=== PATIENT | female | born 2005 | race Two or more races ===

== ENCOUNTER 2024-10-27 12:50 | Observation (INO) | payer SELFPAY ==
[2024-10-27 13:03] VITALS: BP 102/67; PULSE 90; RESP 100; RESP 18; TEMP 37.1; BMI 30.4
[2024-10-27 13:04] VITALS: BP 102/67; PULSE 90
== END 2024-10-27 13:40 | disposition home or self-care (01) ==
PROVIDERS: Admitting Provider Obstetrics & Gynecology; Visit Provider Obstetrics & Gynecology
DX: O26.892 Other specified pregnancy related conditions, second trimester (principal); Z3A.27 27 weeks gestation of pregnancy; R25.2 Cramp and spasm
CPT/HCPCS: 59025; 59899

== ENCOUNTER 2024-11-26 13:53 | Outpatient (AMB) | payer MEDICAID, SELFPAY ==
--- NOTE | 2024-11-26 14:19 | AMB.OBINITIA ---
Vital Signs 11/26/24 14:21 Height 1.57 m Height Method Stated Weight 76.912 kg Weight Measurement Method Standing Scale BMI 31.1 BP 109/71 Blood Pressure Source Automatic Cuff Blood Pressure Location Right Upper Arm Position Sitting Respiration 17 Pulse 79 Pulse Source Monitor Temp 97.6 F Temp Source Temporal Artery Scan Pulse Oximetry (%) 98 Oxygen Delivery Method Room Air Allergies/Home Meds Allergies & Medications Allergies No Known Allergies Allergy (Verified 11/26/24 14:21) Medication Reconciliation Unobtainable 11/26/24 [History Confirmed 11/26/24] Intake Visit Data Collection New Patient or Established: New Patient (never been to [facility]) Reason for Visit:: OBI Seen by Clinical Staff ONLY (RN/MA): No Property Custodian Required: No Do You Feel Safe at Home: Yes Authorities Contacted: N/A PCP or OBGYN visit in last 3 months: Yes Date of Last PCP or OBGYN visit: 10/27/24 Hx Now: Yes Are you currently on any form of Control: No Pain Present Currently: No Pain Scale Used: Vergara-Tejada/Numerical Pain scale:: 0 Smoking Status Smoking Status: Never smoker Questionnaires Covid-19 Vaccine Questionnaire Has patient been vacinated for Covid-19 Have you been vacinated for Covid-19: No PHQ-9 PHQ-2 Over the last 2 weeks, how often have you been bothered by any of the following problems? 1. Little interest or pleasure in doing things: not at all 2. Feeling down, depressed, or hopeless: not at all Total score: 0 PHQ-9 3. Trouble falling or staying asleep, or sleeping too much: Not at all 4. Feeling tired or having little energy: Not at all 5. Poor appetite or overeating: Not at all 6. Feeling bad about yourself - or that you are a failure or have let yourself or your family down: Not at all 7. Trouble concentrating on things, such as reading the newspaper or watching television: Not at all 8. Moving or speaking so slowly that other people could have noticed? - Or the opposite - being so fidgety or restless that you have been moving around a lot more than usual: not at all 9. Thoughts that you would be better off or of hurting yourself in some way: Not at all Total score: 0 If you checked off any problems, how difficult have these problems made it for you to do your work, take care of things at home, or get along with other people?: not difficult at all Source: Developed by Drs. Chucho Bustamante, Brianne Rucker, Roberto Brar and colleagues, with an educational soledad from [employer]. Depression screen completed yes Social History Living Situation History Marital Status: Lives With: Family Housing: House Tobacco History Smoking Status: Never smoker Second Hand Smoke Exposure: No Alcohol History Alcohol Intake: Never Domestic Abuse History Do You Feel Safe at Home: Yes OB Initial Visit OB Flowsheet OB Flowsheet Initial Weight: Not Recorded Date <del>?</del> EGA Weight BP Alb Glu CTX Pres Fundal ht FHR Mov Dilation Station Effacement Hx Notes Visit Note 11/26/24 <del>?</del> 32w 1d 76.912 kg 109/71 absent cephalic 31 145 active 19-year-old 2 para [address] Ornelas with records. Reports good movement. Denies contractions. Denies bleeding. Denies leaking fluid. No interval complaints. Reports good movement OB sono for growth today. Discussed labor precautions and kick count. Increase fluids. Continue vitamins. Discussed danger signs symptoms ER precautions. Return 2 weeks OB check Menstrual History Menstrual reliability: definite Flow: normal Menstrual regularity: regular Monthly: Yes Age at menarche: 12 On control pills at conception: No OB History : 2 Para: 1 Infection History & Risk Evaluation History of STDs: none HIV risk evaluation: low risk Hepatitis B risk evaluation: low risk Patient or partner has history of Genital Herpes: No Varicella/chicken pox status: unknown Genetic Screening & History Genetic Screening/Teratology Counseling - Includes patient, baby's father, or anyone in either family with: 1. Patient's age 35 years or older as of estimated date of delivery: No 2. Thalassemia (Japanese, Salvadorean, Mediterranean, or Background); MCV less than 80: No 3. Neural Tube Defect (Meningomyelocele, Spina Bifida, or Anencephaly): No 4. Congenital Heart Defect: No 5. Down Syndrome: No 6. Lucio-Sachs (Ashkenazi Jehovah'S Witness, Cajun, Albanian Algerian): No 7. Rosaenne Disease (Ashkenazi Jehovah'S Witness): No 8. Familial Dysautonomia (Ashkenazi Jehovah'S Witness): No 9. Sickle Cell Disease or Trait (): No 10. Hemophilia or other blood disorders: No 11. Muscular Dystrophy: No 12. Cystic Fibrosis: No 13. Scott's Chorea: No 14. Mental Retardation/Autism: No 15. Other inherited genetic or chromosomal disorder: No 16. Maternal Metabolic Disorder (EG,TYPE 1 Diabetes, PKU): No 17. Patient or baby's father had a child with defects not listed above: No 18. Recurrent loss or a stillbirth: No 19. Medications (including supplements, vitamins, herbs or otc drugs)/illicit/recreational drugs/alcohol since last menstrual period: No 20. Any other: No Infection History 1. Live with someone with TB or exposed to TB: No 2. Rash or viral illness since last menstrual period: No 3. Hepatitis B,C: No Other (see comments) Source: [employer] Office Procedures OB Clinic LOC & Office Proc's Nursing/Assessment Patient Status: Established Patient OB Clinic Nursing Assessment: Medication Reconciliation, Update PMH in EMR and Vital Signs OB Clinic Coordination of Care: Complex Care and Chronic Disease 1-5, Consent,records obtained, informed consent, Education Simp Pt/Fam, Results/Orders obtained and Staff clarify orders Special Needs: Heart tones Established Patient Charge Established Patient Point Assignment: 120 Established Patient Point Charge: EP Level 4 (120-155) Assessment & Plan Diagnosis / Problem List (1) Encounter for supervision of high risk in third trimester, antepartum: Status: Acute Plan Sono for growth at [facility]. Discussed labor precautions. kick count. Increase fluids. Continue prenatals. Return in 2 weeks OB Additional Plan Follow Up: 2 Weeks (obc)
[2024-11-26 14:21] VITALS: BP 109/71; PULSE 79; RESP 17; TEMP 36.4; O2SAT 98; BMI 31.1
== END 2024-11-26 14:46 | disposition home or self-care (01) ==
LOC: HODSOBC 13:53
PROVIDERS: Supervising Provider Advanced Practice Midwife; Visit Provider Advanced Practice Midwife
DX: O09.93 Supervision of high risk pregnancy, unspecified, third trimester (principal); Z3A.32 32 weeks gestation of pregnancy
CPT/HCPCS: 99214; G0463

== ENCOUNTER 2024-12-22 10:50 | Observation (INO) | payer MEDICAID, SELFPAY ==
[2024-12-22 11:02] VITALS: BP 113/72; BP 119/72; PULSE 77; RESP 17; TEMP 37.1; BMI 34.0
--- NOTE | 2024-12-22 11:12 | XR_ITS ---
Examination: Complete OB ultrasound greater than 14 weeks Date and time of exam: December 22, 2024, 1121 hrs. Indications: Vaginal bleeding beginning this morning Findings: Viable intrauterine single fetus with single amniotic sac presentation Vertex Cardiac motion 136 BPM. Placenta fundal grade 3. Amniotic fluid index 14.8 cm. Ovaries obscured by bowel gas.. Composite estimated gestational age based on BPD, head circumference, abdominal circumference, femur length is 36 weeks 0 days Estimated weight 2714 g. Survey of intracranial anatomy, spinal anatomy, abdominal anatomy, four-chamber heart performed with no abnormalities identified. Impression: Viable intrauterine gestation vertex presentation..
[2024-12-22 12:07] LABS: Amorphous Crystals,Urine Present (Absent); Bacteria,Urine Rare; Bilirubin,Urine Negative (Negative); Blood,Urine 2+ (Negative); Clarity,Urine Turbid (Clear/Hazy); Collection Type, Urine Clean Catch; Color,Urine Lt-Yellow (Lt Yel-Yel); Glucose, Urine Negative (Negative); Ketones,Urine Negative (Negative); Leukocyte Esterase,Urine Positive (Negative); Nitrite,Urine Negative (Negative); PH,Urine 7.0 (5.0-7.0); Protein,Urine Negative (Neg - Trace); RBC,Urine 5 /hpf (0-3); Specific Gravity,Urine 1.011 (1.001-1.035); Squamous Epithelial Cell,Urine 21 /hpf (0-5); Urobilinogen,Urine Negative mg/dL (0.0-1.0); WBC,Urine 27 /hpf (0-5)
== END 2024-12-22 13:50 | disposition home or self-care (01) ==
PROVIDERS: Admitting Provider Obstetrics & Gynecology; PCP Family Medicine; Visit Provider Obstetrics & Gynecology
DX: O46.93 Antepartum hemorrhage, unspecified, third trimester (principal); Z3A.36 36 weeks gestation of pregnancy
CPT/HCPCS: 59025; 59899; 76805; 81001; 87086; G0378

== ENCOUNTER 2024-12-30 13:00 | Outpatient (AMB) | payer MEDICAID, SELFPAY ==
--- NOTE | 2024-12-30 13:14 | AMB.OBVISIT ---
Vital Signs 12/30/24 13:15 Height 1.55 m Height Method Stated Weight 80.853 kg Weight Measurement Method Standing Scale BMI 33.6 BP 123/78 Blood Pressure Source Automatic Cuff Blood Pressure Location Left Upper Arm Position Sitting Respiration 18 Pulse 86 Pulse Source Monitor Temp 97.8 F Temp Source Oral Pulse Oximetry (%) 97 Oxygen Delivery Method Room Air Allergies/Home Meds Allergies & Medications Allergies No Known Allergies Allergy (Verified 12/30/24 13:16) Medication Reconciliation [id number] 40 mg-1 mg chewable tablet 1 tab PO QDAY 12/22/24 [History Confirmed 12/30/24] Intake Visit Data Collection New Patient or Established: Established Patient (seen at [facility] [place] within 3 years) Reason for Visit:: CARE Seen by Clinical Staff ONLY (RN/MA): No Java Jsf Developer Required: No Do You Feel Safe at Home: Yes Authorities Contacted: N/A PCP or OBGYN visit in last 3 months: Yes Hx Now: Yes Are you currently on any form of Control: No Pain Present Currently: Yes Pain Location: Abdomen Pain Scale Used: Vergara-Tejada/Numerical Pain scale:: 3 Smoking Status Smoking Status: Never smoker Questionnaires Covid-19 Vaccine Questionnaire Has patient been vacinated for Covid-19 Have you been vacinated for Covid-19: Yes PHQ-9 PHQ-2 Over the last 2 weeks, how often have you been bothered by any of the following problems? 1. Little interest or pleasure in doing things: not at all 2. Feeling down, depressed, or hopeless: not at all Total score: 0 PHQ-9 3. Trouble falling or staying asleep, or sleeping too much: Not at all 4. Feeling tired or having little energy: Not at all 5. Poor appetite or overeating: Not at all 6. Feeling bad about yourself - or that you are a failure or have let yourself or your family down: Not at all 7. Trouble concentrating on things, such as reading the newspaper or watching television: Not at all 8. Moving or speaking so slowly that other people could have noticed? - Or the opposite - being so fidgety or restless that you have been moving around a lot more than usual: not at all 9. Thoughts that you would be better off or of hurting yourself in some way: Not at all Total score: 0 Source: Developed by Drs. Chucho Bustamante, Brianne Rucker, Roberto Brar and colleagues, with an educational soledad from [employer]. Depression screen completed yes Social History Living Situation History Lives With: Family Housing: House Tobacco History Smoking Status: Never smoker Second Hand Smoke Exposure: No Alcohol History Alcohol Intake: Never Domestic Abuse History Do You Feel Safe at Home: Yes Care OB Visit Log OB Flowsheet Initial Weight: Not Recorded Date <del>?</del> EGA Weight BP Alb Glu CTX Pres Fundal ht FHR Mov Dilation Station Effacement Hx Notes Visit Note 11/26/24 <del>?</del> 32w 1d 76.912 kg 109/71 absent cephalic 31 145 active 19-year-old 2 para [address] Ornelas with records. Reports good movement. Denies contractions. Denies bleeding. Denies leaking fluid. No interval complaints. Reports good movement OB sono for growth today. Discussed labor precautions and kick count. Increase fluids. Continue vitamins. Discussed danger signs symptoms ER precautions. Return 2 weeks OB check 12/30/24 <del>?</del> 37w 0d 80.853 kg 123/78 absent cephalic 36 145 active Reports good movement. Denies leaking, bleeding, contractions. No OB discomfort GBS today. Discussed labor precautions. Discussed kick count twice a day. Patient was given requisition to make appointment for ultrasound at [facility]. Return in a week OB check SKYE Calculator Estimated Delivery Date Method Current WG Current Estimate 01/20/25 Ultrasound #1 37w 0d Other Estimates 01/26/25 LMP (Uncertain) 36w 1d 01/16/25 Ultrasound #2 37w 4d 01/20/25 Manual 37w 0d Final SKYE: 01/20/25. efw: 58% Notes Visit Date: 11/26/24 Last Updated by: Pauline Price, TIMUR 19 yo . poor dates. LMP 04/21/24; EDC: 02/05/25. 1st sono: 4/1/25; 13w1. EDC: 01/20/25. OB panel: )O+,abs-, rpr;;nr, rub NI, HIV-,HBSAG-, HC-, A1: 5.3, 1 hr gtt: 120, Gc/CT-, 43//262, AFP/NIPT/carrier screen- sono 09/23: 23w4 on . EDC: % Office Procedures OB Clinic LOC & Office Proc's Nursing/Assessment Patient Status: Established Patient OB Clinic Nursing Assessment: Medication Reconciliation, Update PMH in EMR and Vital Signs OB Clinic Coordination of Care: Complex Care and Chronic Disease 1-5, Consent,records obtained, informed consent, Education Simp Pt/Fam, 1 Ins Authorization, Lab and Imaging orders, Results/Orders obtained and Staff clarify orders Special Needs: Heart tones Miscellaneous Interventions: Culture Specimen Collection Established Patient Charge Established Patient Point Assignment: 165 Established Patient Point Charge: EP Level 5 (160-above) Assessment & Plan Diagnosis / Problem List (1) Encounter for supervision of high risk in third trimester, antepartum: Status: Acute Plan GBS today. Discussed labor precautions and kick count. Discussed kick count twice a day. Discussed ER precautions. Return in a week for OB check. And patient will schedule follow-up growth sono with [facility] imaging. Additional Plan Follow Up: 1 Week (obc)
[2024-12-30 13:15] VITALS: BP 123/78; PULSE 86; RESP 18; TEMP 36.6; O2SAT 97; BMI 33.6
== END 2024-12-30 13:28 | disposition home or self-care (01) ==
LOC: HODSOBC 13:00
PROVIDERS: PCP Family Medicine; Referring Provider Family Medicine; Supervising Provider Advanced Practice Midwife; Visit Provider Advanced Practice Midwife
DX: O09.93 Supervision of high risk pregnancy, unspecified, third trimester (principal); Z3A.37 37 weeks gestation of pregnancy; Z36.85 Encounter for antenatal screening for Streptococcus B
CPT/HCPCS: 99215; G0463

== ENCOUNTER 2025-01-01 19:05 | Inpatient (IN) | payer MEDICAID, SELFPAY ==
[2025-01-01] VITALS (23 sets, daily range): BP systolic 120–131; BP diastolic 68–86; PULSE 68–116; RESP 19–99; TEMP 37.4–37.5; O2SAT 97–99; BMI 30.4; BMI 32.4
[2025-01-01 19:48] LABS: ROM Kit Exp Date# 01/18/2028; ROM Kit Lot # 58104371; ROM Swab Mixed By: TA; Swb Mxed in Solvent 1 min? Yes
[2025-01-01 19:49] LABS: Rupture of Fetal Membranes Positive (Negative)
--- NOTE | 2025-01-01 21:05 | XR_ITS ---
Examination: Complete OB ultrasound greater than 14 weeks Date and time of exam: January 01, 2025 2119 hrs. Indications: Labor evaluation, unknown presentation Findings: Viable intrauterine single fetus with single amniotic sac presentation cephalic Cardiac motion 144 BPM Placenta posterior grade 3. Umbilical cord insertion 3 vessel seen. Amniotic fluid index 6.7 cm spine maternal left Cervix 3.6 cm Ovaries obscured by bowel gas. Composite estimated gestational age based on BPD, head circumference, abdominal circumference, femur length is 36 weeks 6 days Estimated weight 2985 g. Survey of intracranial anatomy, spinal anatomy, abdominal anatomy, four-chamber heart performed with no abnormalities identified. Impression: Viable intrauterine gestation cephalic presentation.
[2025-01-01 21:59] LABS: Basophils # (Auto) 0.0 Thou/mm3 (0.0-0.2); Basophils % (Auto) 0 % (0-2.5); Eosinophils # (Auto) 0.0 Thou/mm3 (0.0-0.5); Eosinophils % (Auto) 0 % (0-10); Hematocrit 32.9 % (36.0-46.0); Hemoglobin 10.2 g/dL (12.0-16.0); Immature Granulocytes Auto 0.13 Thou/mm3 (0.00-0.00); Lymphocytes # (Auto) 3.3 Thou/mm3 (1.0-4.8); Lymphocytes % (Auto) 36 % (10-50); Mean Corpuscular HGB Conc 31.0 g/dl (31.0-37.0); Mean Corpuscular Hemoglobin 23.8 pg (25.0-35.0); Mean Corpuscular Volume 77 fL (80-100); Monocytes # (Auto) 0.5 Thou/mm3 (0.0-0.8); Monocytes % (Auto) 5 % (0-12); Neutrophils # (Auto) 5.3 Thou/mm3 (1.8-7.7); Neutrophils % (Auto) 57 % (37-80); Nucleated Red Blood Cell # 0.03 Thou/mm3 (0.00-0.00); Nucleated Red Blood Cell % 0 /100 WBC (0); Platelet Count 185 Thou/mm3 (140-440); RDW Standard Deviation 41.8 fL (36.4-46.3); Red Blood Count 4.28 Miln/mm3 (4.00-5.20); White Blood Count 9.3 Thou/mm3 (4.5-11.0)
[2025-01-01 22:38] LABS: Syphilis Nonreactive (Nonreactive)
[2025-01-01] MEDS: RINGERS LACTATED 1000 ML 1,000 ML 100 ML IV (23:02)
[2025-01-01] MEDS: Ampicillin Inj 2,000 MG in SODIUM CHLORIDE 0.9% (POP) 100 ML 200 MG IV (23:02)
[2025-01-01] MEDS: OXYTOCIN in NS 30 units 30 UNIT/500 ML BAG IV (23:03)
[2025-01-02] VITALS (34 sets, daily range): BP systolic 102–188; BP diastolic 59–104; PULSE 60–99; RESP 16–18; TEMP 36.6–37; O2SAT 96–98
[2025-01-02] MEDS: Ampicillin Inj 1,000 MG in SODIUM CHLORIDE 0.9% (Popper) 50 ML 50 MG IV ×2 (02:55→07:30)
[2025-01-02] MEDS: MINERAL OIL 30 ML UDC TOP (08:20)
[2025-01-02] MEDS: LIDOCAINE HCL 1% 20 ML VIAL INFL (08:20)
[2025-01-02] MEDS: OXYTOCIN INJ 10 UNIT/ML VIAL IM (08:28)
[2025-01-02] MEDS: OXYTOCIN in NS 20 units 20 UNIT/1,000 ML BAG 125 UNIT IV (08:28)
[2025-01-02] MEDS: METHYLERGONOVINE INJ 0.2 MG/ML VIAL IM (08:37)
[2025-01-02] MEDS: IBUPROFEN TAB 400 MG TABLET 800 MG PO ×2 (09:04→20:36)
--- NOTE | 2025-01-02 09:06 | PD.LDHP ---
Documentation for date of: 01/02/25 OB Labor/Induct. HPI History of Present Illness Chief complaint: srom : 2 Para: 1 Term pregnancies: 1 pregnancies: 0 Living children: 1 History of Abortions: Spontaneous and Elective: 0 History of Vaginal deliveries: 1 History of sections: No History of : No Date of last menstrual period: 04/21/24 SKYE: 01/20/25 Gestational Age (weeks): 37 Gestational Age (days): 2 Gestational age based on last menstrual period: 36 History of present illness: 19 -year-old 2 para 1 complains of leaking fluid. Since 1200 on January 01, 2025. LMP 04/21/24. EDC; 02/05/25. first visit at [facility] OB was at 13 week. No PMH,no social habit, no surgery. irreg uc. leaking clear fluid. O+,abs-, RPR::NR, rub imm, hbsag-, hiv-, GC/CT-. 1 hr gtt normal. NIPT/carrier screen-, GBS- History of Present Dating criteria: LMP confirmed by 1st trimester US Adequate Care: Yes Ultrasounds: normal 1st trimester US and normal mid trimester US Obstetrical complications: none Medical complications: none Labs Labs: Positive: RPR, Negative: Hepatitis B, Rubella Titre, HIV, Chlamydia and Gonorrhea and Unknown: Herpes Type 1, Herpes Type 2, Group Beta Strep and Covid-19 Review of Systems Review of Systems Systems Reviewed: All systems reviewed, normal except as documented Past Medical History Surgical History SURGICAL: Negative Section Meds Home Medications and Allergies Home Medications ?Medication ?Instructions ?Recorded ?Confirmed ?Type [id number] 40 mg-1 1 tab PO QDAY 12/22/24 01/01/25 History mg chewable tablet Allergies Allergy/AdvReac Type Severity Reaction Status Date / Time No Known Allergies Allergy Verified 01/01/25 21:44 OB Exam Physical Exam Vital signs: Temp Pulse Resp BP Pulse Ox 97.9 F 94 19 135/87 H 98 01/02/25 07:36 01/02/25 09:05 01/01/25 19:17 01/02/25 09:05 01/01/25 20:37 Narrative: normal heart rate. lungs clear. no wheezes. gravid abdomen. gynecoid pelvis. + amniosure. irregular UC. sve: 80/3/-3. vertex. EFW 6 lb. FHR category 1, accel and moderate variability. Detailed Labor and Delivery Exam Dilation (cm): 3 Effacement (%): 80 Cervix position: mid station: -3 Consistency: soft Presentation: Vertex Membranes: ruptured Amniotic fluid: clear monitor accelerations: 15x15 monitor decelerations: None residential variability: Moderate (11-25) Contraction frequency (min): irreg Contraction duration (sec): 30 Tachysystole: No Contraction intensity: Moderate OB Results Labs 01/01/25 21:45 Labs: Short CBC 01/01/25 Range/Units 21:45 WBC 9.3 (4.5-11.0) Thou/mm3 Hgb 10.2 L (12.0-16.0) g/dL Hct 32.9 L (36.0-46.0) % Plt Count 185 (140-440) Thou/mm3 OB Assessment & Plan Assessment and Plan (1) Normal labor and delivery: Status: Acute Additional Plan Induction method: per pitocin protocol Plan: anticipate NVD, GBS prophylaxis tx and consult MD iyer
[2025-01-02] MEDS: TRANEXAMIC ACID 1,000 MG IVPB 1,000 MG/100 ML BAG 200 MG IV ×2 (09:14→09:59)
--- NOTE | 2025-01-02 09:16 | OBDSUM_ITS ---
Data ([place]) Data Hx Section: No : 2 Term: 1 : 0 Livin Abortions: Spontaneous & Theraputic: 0 Delivery Data ([place]) Labor Data Initiation of labor: Spontaneous Induction/Augmentation Agent: Pitocin ROM date: 01/01/25 ROM time: 12:00 Amniotic membrane rupture type: Spontaneous Amniotic fluid description: Clear Delivery Data EDC: 01/20/25 EDC calculated by:: LMP/early US confirmation Date of arrival to unit: 01/01/25 Time of arrival to unit: 20:28 Onset of labor date: 01/01/25 Onset of labor time: 12:00 Complete dilation date: 01/02/25 Complete dilation time: 08:00 [place] delivery date: 01/02/25 [place] delivery time: 08:26 Gestational age (weeks): 37 Gestational age (days): 2 Placenta delivery date: 01/02/25 Placenta delivery time: 08:28 Stage 1 total time: Labor - Stage 1 Duration 20 hours and 0 minutes Delivered by: Pauline Price Delivery nurse: ilana Reyes nurse: indio Travel Assistant at delivery: Yes Support person(s) at delivery: STARR Other staff at delivery: CORRIE Wiggins LVN student Delivery Method Delivery method: Normal Vaginal Delivery Presentation: Vertex position: OA Anesthesia Type Anesthesia Type: Local Delivery Room Medications Delivery room medications: Lidocaine (local), Methergine 0.2 mg IM, Pitocin 10 u IM, Pitocin 20 u IV and Cytotec 800 AL Placenta Placenta delivery description: Spontaneous (intact , placenta inspected) Cord blood sent to lab: Yes cord blood collection: Cord Blood Type Episiotomy Episiotomy description: Midline Perineal repair Sutures used for repair: 3.0 Vicryl EBL Estimated blood loss (ml): 500 Umbilical Cord cord description: 3 Vessels [place] Data ([place]) [place] Data order: 1 [place]'s gender: Male Identification band number: [id number] weight (gms): 2690 kg Weight (pounds): 5930 lbs and 7.0 ozs 1 minute: 9 5 minutes: 9
[2025-01-02] MEDS: RINGERS LACTATED 1000 ML 1,000 ML 100 ML IV (09:19)
[2025-01-02 17:12] LABS: Basophils # (Auto) 0.0 Thou/mm3 (0.0-0.2); Basophils % (Auto) 0 % (0-2.5); Eosinophils # (Auto) 0.0 Thou/mm3 (0.0-0.5); Eosinophils % (Auto) 0 % (0-10); Hematocrit 31.7 % (36.0-46.0); Hemoglobin 9.9 g/dL (12.0-16.0); Immature Granulocytes Auto 0.15 Thou/mm3 (0.00-0.00); Lymphocytes # (Auto) 2.4 Thou/mm3 (1.0-4.8); Lymphocytes % (Auto) 18 % (10-50); Mean Corpuscular HGB Conc 31.2 g/dl (31.0-37.0); Mean Corpuscular Hemoglobin 24.0 pg (25.0-35.0); Mean Corpuscular Volume 77 fL (80-100); Monocytes # (Auto) 0.7 Thou/mm3 (0.0-0.8); Monocytes % (Auto) 5 % (0-12); Neutrophils # (Auto) 10.2 Thou/mm3 (1.8-7.7); Neutrophils % (Auto) 76 % (37-80); Nucleated Red Blood Cell # 0.03 Thou/mm3 (0.00-0.00); Nucleated Red Blood Cell % 0 /100 WBC (0); Platelet Count 171 Thou/mm3 (140-440); RDW Standard Deviation 41.4 fL (36.4-46.3); Red Blood Count 4.13 Miln/mm3 (4.00-5.20); White Blood Count 13.4 Thou/mm3 (4.5-11.0)
[2025-01-02] MEDS: DOCUSATE SOD 100 MG CAPSULE PO (20:36)
[2025-01-03 03:42] VITALS: BP 108/70; PULSE 70; RESP 16; TEMP 36.6; O2SAT 98
[2025-01-03] MEDS: DOCUSATE SOD 100 MG CAPSULE PO (08:18)
[2025-01-03] MEDS: IBUPROFEN TAB 400 MG TABLET 800 MG PO (08:18)
[2025-01-03 08:30] VITALS: BP 121/71; PULSE 75; RESP 18; TEMP 36.6
--- NOTE | 2025-01-03 12:26 | PD.LDPPPRG ---
Subjective Subjective Interval history: The patient is a 19-year-old -0-0-2 status post vaginal delivery 01/02/2025 by Pauline. She had a small episiotomy at delivery. She is Kiswahili-speaking only and the entire interview and exam is conducted through the nurse. This morning, she is resting comfortably in bed. She denies heavy bleeding. Her pain is under good control. She is voiding and tolerating a general diet. She would like to be discharged home. She is breast and bottlefeeding Exam Vital Signs Temp Pulse Resp BP Pulse Ox O2 Del Method 97.8 F 75 18 121/71 98 Room Air 01/03/25 08:30 01/03/25 08:30 01/03/25 08:30 01/03/25 08:30 01/03/25 03:42 01/03/25 08:30 Narrative Exam Fundus firm about 4 cm below her umbilicus. Extremities show no significant edema or erythema. Objective Labs 01/02/25 17:03 Labs: Laboratory Results - last 24 hr 01/02/25 17:03 WBC 13.4 H D RBC 4.13 Hgb 9.9 L Hct 31.7 L MCV 77 L MCH 24.0 L MCHC 31.2 RDW Std Deviation 41.4 Plt Count 171 Neut % (Auto) 76 Lymph % (Auto) 18 [place] % (Auto) 5 Eos % (Auto) 0 Baso % (Auto) 0 Neut # (Auto) 10.2 H Lymph # (Auto) 2.4 [place] # (Auto) 0.7 Eos # (Auto) 0.0 Baso # (Auto) 0.0 Immature Gran # (Auto) 0.15 H Absolute Nucleated RBC 0.03 H Immature Gran % 1 H Nucleated RBC % 0 Assessment & Plan Problem List (1) care following vaginal delivery: Problem details: Discharge home day #1 in stable condition, patient doing well with no complications. Status: Acute Time Spent With Patient Time: Total time spent is greater than 50% in coordination of care (as documented) at patient's floor/unit and/or counseling patient: Time with patient: less than 15 minutes
--- NOTE | 2025-01-03 12:30 | PD.LDDS ---
DS: Providers Provider Date of admission: 01/01/25 20:28 Primary care physician: Physician No Primary/Family Admitting Provider: Dilcia Ojeda MD Attending Provider on Admission: Pauline Price CNM Consults: 01/02/25 09:24 Referral Routine Comment: Attending Provider on DC: Lizzie Stevens MD (OB Clinic) Discharging Provider: Lizzie Stevens MD (OB Clinic) Anticipated date of discharge: 01/03/25 DS: Diagnosis Discharge Diagnosis (1) Term delivered: Status: Acute Assessment & Plan: Discharge home day #1 in stable condition. Pelvic rest x 6 weeks. Problem List Completed Was Problem List Reviewed/Reconciled?: Yes Summary/Hosp Course Brief History: 19 -year-old 2 para 1 complains of leaking fluid. Since 1200 on January 01, 2025. LMP 04/21/24. EDC; 02/05/25. first visit at [facility] OB was at 13 week. No PMH,no social habit, no surgery. irreg uc. leaking clear fluid. O+,abs-, RPR::NR, rub imm, hbsag-, hiv-, GC/CT-. 1 hr gtt normal. NIPT/carrier screen-, GBS-patient was admitted by Pauline Price. Please see history and physical for further details. The patient underwent an uncomplicated vaginal delivery by Pauline Price 01/02/2025 approximately 8:00 in the morning. Please see delivery note for further details. Her post course was uncomplicated. By day #1 the patient was ambulating, voiding, passing flatus, and tolerating a general diet. She reported minimal lochia. Her predelivery hemoglobin was 10.2. Postdelivery hemoglobin 9.9. Patient was breast and bottlefeeding. She was discharged home day #1 in stable condition. Peripartum Data Delivery Method: Normal Vaginal Delivery Episiotomy Description: Midline Laceration Description: see Delivery Summary Procedures: 01/02/2025 see delivery note for further details complications: none Status at Discharge Cognitive/behavioral status at discharge: Patient is alert and oriented x 3 in no apparent distress Functional status at discharge: independent ambulation Overall status at discharge: patient is progressing back to baseline Time Spent with Patient Time attestation: Total time spent providing and/or coordinating discharge services: Time spent: Less than 30 minutes Specific discharge activities: Pelvic rest x 6 weeks. No intercourse, tampons, douching, bathtubs, or swimming x 6 weeks. Exam Vital Signs Temp Pulse Resp BP Pulse Ox O2 Del Method 97.8 F 75 18 121/71 98 Room Air 01/03/25 08:30 01/03/25 08:30 01/03/25 08:30 01/03/25 08:30 01/03/25 03:42 01/03/25 08:30 Narrative Exam Patient is alert and oriented x 3 in no apparent distress. Her fundus is firm about 4 cm below her umbilicus. Extremities shows no significant edema or erythema. Discharge Plan Plan Patient Disposition: HOME (Self Care) Disposition Comment: Stable Patient condition on transfer: Stable Prescriptions/Referrals Prescriptions/Med Rec: New acetaminophen 325 mg Tablet 650 mg PO Q4H PRN (Reason: See Comments) Qty: 30 0RF ibuprofen 400 mg Tablet 800 mg PO Q8H PRN (Reason: See Comments) Qty: 60 0RF docusate sodium 100 mg Capsule 100 mg PO BID Qty: 30 0RF Discontinued [id number] 40-1 mg tablet,chewable 1 tab PO QDAY Referrals: No Primary/Family,Physician [Primary Care Provider] Patient/Caregiver Discharge Instructions Discharge Activity: activity as tolerated Other Discharge Activity Instructions:: Pelvic rest x 6 weeks Other Discharge Diet Instructions: Hacer terese con Pauline en 3-6 semanas Education Materials: After a Vaginal , After Delivery Concerns, Breast Care After Print Language: Iranian Activity Restrictions/Additional Instructions: Call for heavy vaginal bleeding, severe depression or fevers. Follow-up in 6 weeks to see Pauline at clinic. Stand Alone Forms: Violet Award Info., Patient Portal Info Letter Discharge Order Discharge Orders: Discharge (Routine); Ordered 01/03/25 Ordered By: Lizzie Stevens (OB Clinic) Planned Discharge Date 01/03/25
[2025-01-03 15:30] VITALS: BP 116/82; PULSE 77; RESP 18; TEMP 36.9; O2SAT 98
== END 2025-01-03 17:25 | disposition home or self-care (01) | DRG 560 ==
LOC: S4SX 01-02 08:53 → S4NX 01-02 11:21
PROVIDERS: Admitting Provider Obstetrics & Gynecology; Visit Provider Advanced Practice Midwife
DX: O80 Encounter for full-term uncomplicated delivery (principal); Z37.0 Single live birth; Z3A.37 37 weeks gestation of pregnancy
CPT/HCPCS: 36415; 59025; 76805; 84112; 85025; 86780; 86850; 86900; 86901; J0290; J2210; J2590; J3490; J7050; J7120; S0191; A9270

== ENCOUNTER 2025-02-14 15:37 | Outpatient (AMB) | payer MEDICAID, SELFPAY ==
--- NOTE | 2025-02-14 15:46 | AMBOBPPN_ITS ---
Vital Signs 02/14/25 15:48 Height 1.65 m Height Method Stated Weight 76.43 kg Weight Measurement Method Standing Scale BMI 28.0 BP 105/63 Blood Pressure Source Automatic Cuff Blood Pressure Location Left Upper Arm Position Sitting Respiration 16 Pulse 85 Pulse Source Monitor Temp 98.7 F Temp Source Oral Pulse Oximetry (%) 98 Oxygen Delivery Method Room Air Allergies/Home Meds Allergies & Medications Allergies No Known Allergies Allergy (Verified 02/14/25 15:51) Medication Reconciliation acetaminophen 325 mg tablet 650 mg (2 x 325 mg) PO Q4H PRN See Comments #30 tabs 01/03/25 [Rx Confirmed 02/14/25] docusate sodium 100 mg capsule 100 mg PO BID #30 caps 01/03/25 [Rx Confirmed 02/14/25] ibuprofen 400 mg tablet 800 mg (2 x 400 mg) PO Q8H PRN See Comments #60 tabs 01/03/25 [Rx Confirmed 02/14/25] Intake Visit Data Collection New Patient or Established: Established Patient (seen at [facility] within 3 years) Reason for Visit:: Seen by Clinical Staff ONLY (RN/MA): No Web Content Director Required: No Do You Feel Safe at Home: Yes Authorities Contacted: N/A PCP or OBGYN visit in last 3 months: Yes Hx Now: Yes Are you currently on any form of Control: No Pain Present Currently: No Pain Scale Used: [place]/Numerical Pain scale:: 0 Smoking Status Smoking Status: Never smoker Immunizations Flu Vaccine in the Last 12 Months: Yes Flu Vaccine Exclusion Criteria: Already Received RESIDENTIAL THERAPIST: Past Medical History Past Medical History: No Hx Neurological Disorders, No Hx Breast Cancer, No Hx Cardiac Disorders, No Hx Cancer, No Hx Blood Disorders, No Hx Gastrointestinal Disorders, No Hx Renal Disease, No Hx Diabetes Mellitus Type 1 and No Hx Diabetes Mellitus Type 2 Questionnaires Covid-19 Vaccine Questionnaire Has patient been vacinated for Covid-19 Have you been vacinated for Covid-19: No Social History Living Situation History Lives With: Family Housing: House Tobacco History Smoking Status: Never smoker Second Hand Smoke Exposure: No Alcohol History Alcohol Intake: Never Domestic Abuse History Do You Feel Safe at Home: Yes EPDS - PP Depression Screening [place] Pospartum Depression Screen I have been able to laugh and see the funny side of things: (0) As much as I always could I have looked forward with enjoyment to things: (0) As much as I ever did I have blamed myself unnecessarily when things went wrong: (0) No, never I have been anxious or worried for no good reason: (0) No, not at all I have felt scared or panicky for no very good reason: (0) No, not at all Things have been getting on top of me: (0) No, I have been coping as well as ever I have been so unhappy that I have had difficulty sleeping: (0) No, not at all I have felt sad or miserable: (0) No, not at all I have been so unhappy that I have been crying: (0) No, never The thought of harming myself has occurred to me: (0) Never EPDS completed yes Care OB Visit Log OB Flowsheet Initial Weight: Not Recorded Date -?-?-?-?-?-?-?-?-?-?-?-?- EGA Weight BP Alb Glu CTX Pres Fundal ht FHR Mov Dilation Station Effacement Hx Notes Visit Note 11/26/24 -?-?-?-?-?-?-?-?-?-?-?-?- 32w 1d 76.912 kg 109/71 absent cephalic 31 145 active 19-year-old 2 para [address] Ornelas with records. Reports good movement. Denies contractions. Denies bleeding. Denies leaking fluid. No interval complaints. Reports good movement OB sono for growth today. Discussed labor precautions and kick count. Increase fluids. Continue vitamins. Discussed danger signs symptoms ER precautions. Return 2 weeks OB check 12/30/24 -?-?-?-?-?-?-?-?-?-?-?-?- 37w 0d 80.853 kg 123/78 absent cephalic 36 145 active Reports good movement. Denies leaking, bleeding, contractions. No OB discomfort GBS today. Discussed labor precautions. Discussed kick count twice a day. Patient was given requisition to make appointment for ultrasound at [facility]. Return in a week OB check SKYE Calculator Estimated Delivery Date Method Current WG Current Estimate 01/20/25 Ultrasound #1 43w 4d Other Estimates 01/26/25 LMP (Uncertain) 42w 5d 01/16/25 Ultrasound #2 44w 1d 01/20/25 Manual 43w 4d Final SKYE: 01/20. efw: 58% Notes Visit Date: 11/26/24 Last Updated by: Pauline Price CNM 19 yo . poor dates. LMP 04/21/24; EDC: 02/05/25. 1st sono: 07/16/24; 13w1. EDC: 01/20/25. OB panel: )O+,abs-, rpr;;nr, rub NI, HIV-,HBSAG-, HC-, A1: 5.3, 1 hr gtt: 120, Gc/CT-, /262, AFP/NIPT/carrier screen- sono 09/23: 23w4 on . EDC: % HPI Interval History: 20-year-old 2 para 2 for 6-week . Patient has no interval complaints. She had a vaginal delivery January 02, 2025. She was augmented for prolonged rupture membranes at 37 weeks 2 days. Pitocin denies any chronic health issues denies social habits. Denies surgeries. Patient is very happy, no depression. She is not sexually active at this time. She did like to have Depo. She had a spontaneous vaginal of a baby boy weighing 7 pounds and she is bottlefeeding. Sibling is adjusting and father the baby is involved. LMP 02/14/25 Was or delivery considered high risk: No Delivery type: vaginal Was labor induced: no (Augmented with Pitocin) Gestational age at delivery (weeks): 37 Delivery date: 01/02/25 Delivering provider: batsheva Delivery complications: No Is patient : No Is patient sexually active: No Contraception planned: depo Review of Systems Review of Systems ROS limited to current RESIDENTIAL THERAPIST complaints: Yes Exam Narrative Physical exam: Normal heart rate and rhythm. Lungs clear no wheezes. Abdomen is soft nontender. Uterus well involuted. Perineum is intact no lacerations. No swelling. Small lochia. Negative Homans' sign. 2+ DTRs. No edema no swelling. Breasts are soft Office Procedures [facility] LOC & Office Proc's Nursing/Assessment Patient Status: Established Patient OB Clinic Nursing Assessment: Medication Reconciliation, Update PMH in EMR and Vital Signs OB Clinic Coordination of Care: Complex Care and Chronic Disease 1-5, Consent,records obtained, informed consent, Education Simp Pt/Fam, 1 Ins Authorization, Lab and Imaging orders, Results/Orders obtained and Staff clarify orders Established Patient Charge Established Patient Point Assignment: 120 Established Patient Point Charge: EP Level 4 (120-155) Office Meds Depo-Provera 150 mg/mL intramuscular syringe Performing Provider: Pauline Price CNM Performing Location: [facility] Administered by: Christie Chilel MA on 02/14/25 16:32 Dose Route Admin Location Dispensed Lot Number Expiration Date Pack age [employer] 150 mg IM IGHT DELTIOID 1 mL [id number] 01/04/26 8116-6217-06 [id number] [facility] Assessment & Plan Diagnosis / Problem List (1) 6 weeks follow-up: Status: Acute (2) Encounter for management and injection of depo-Provera: Status: Acute Plan depo 150 im, review method and side effect. discuss ACHES. walk 40 minute daily, vitamin D and calcium daily. condom x 2 week. rtc 12 week depo Care Reviewed delivery summary and any complications: Yes Uterus involuted to: 3 below umb Perineal / incision healing noted: Yes Screened for depression: Yes Depression counseling provided: No Discussed family planning & contraception: Yes Contraception planned: depo Counseling on safe resumption of sexual activity: Yes Counseling on gradual excercise: Yes Discussed and concerns (describe), provided support: No Referred to disability benefits specialist: No Counseled on good nutrition, hydration, and self care: Yes Reviewed vaccine status: No Chronic & current problems reconciled on problem list: Yes Infant care discussed; questions answered: feeding Follow up: routine/prn Additional counseling & anticipatory guidance provided: depo 150 IM, review method and side effect. rtc 3 month depo. walk 40 minute daily, condom x 2 week
[2025-02-14 15:48] VITALS: BP 105/63; PULSE 85; RESP 16; TEMP 37.1; O2SAT 98; BMI 28.0
== END 2025-02-14 16:29 | disposition home or self-care (01) ==
LOC: HODSOBC 15:37
PROVIDERS: Supervising Provider Advanced Practice Midwife; Visit Provider Advanced Practice Midwife
DX: Z39.2 Encounter for routine postpartum follow-up (principal); Z30.013 Encounter for initial prescription of injectable contraceptive
CPT/HCPCS: 96372; 99214; J3490; G0463